=== PATIENT | female | born 1965 | race Caucasian/White ===

== ENCOUNTER 2018-12-02 17:56 | Emergency (ER) | payer MEDICAID, OTHER ==
[~2018-12-02] VITALS: Wt 59.5 kg
[2018-12-02] MEDS ORDERED: KETOROLAC 30 MG INJ IM STA (18:43)
[2018-12-02] MEDS ORDERED: IBUP-1542 PO (21:37)
[2018-12-02] MEDS ORDERED: POLY17PO6 PO (21:37)
[2018-12-02] MEDS ORDERED: TRAM50TA2 PO (21:37)
--- NOTE | 2018-12-02 21:40 | ERD ---
ER Documentation Chief Complaint Chief Complaint bilat flank pain [id number] with recent UTI finished abx but did not help HPI 53-year-old female since 2-month history of low back pain radiating to the bilateral lower abdomen. She was seen by her primary doctor had an x-ray. She was treated for UTI but has persistent pain. She denies fevers, vomiting, urinary complaints, upper abdominal pain. She states that she is constipated although having regular bowel movements. ROS All systems reviewed and are negative except as per history of present illness. Medications Home Meds Active Scripts Polyethylene Glycol* (Miralax*) 17 Gm Powd.pack, 17 GM PO DAILY, #14 Prov:VALDEZ KENNEY MD 12/02/18 Tramadol HCl (Tramadol HCl) 50 Mg Tablet, 50 MG PO Q4 PRN for PAIN, #15 TAB Prov:VALDEZ KENNEY MD 12/02/18 Ibuprofen* (Motrin*) 600 Mg Tab, 600 MG PO Q6, #30 TAB Prov:VALDEZ KENNEY MD 12/02/18 Allergies Allergies: Coded Allergies: No Known Allergy (Unverified , 12/02/18) PMhx/Soc Medical and Surgical Hx: pt denies Medical Hx, pt denies Surgical Hx FmHx Family History: No diabetes, No coronary disease, No other Physical Exam Vitals Vital Signs Date Temp Pulse Resp B/P (MAP) Pulse Ox O2 O2 Flow FiO2 Time Delivery Rate 12/02/18 98.5 80 18 136/86 98 Room Air 22:01 (103) 12/02/18 97.8 98 18 174/84 100 18:02 (114) Physical Exam Const: No acute distress Head: Atraumatic Eyes: Normal Conjunctiva ENT: Normal External Ears, Nose and Mouth. Neck: Full range of motion. No meningismus. Resp: Clear to auscultation bilaterally Cardio: Regular rate and rhythm, no murmurs Abd: Soft, non tender, non distended. Normal bowel sounds Skin: No petechiae or rashes Back: No midline or flank tenderness there is tenderness L4-L5 area. No CVA tenderness. Ext: No cyanosis, or edema Neur: Awake and alert Psych: Normal Mood and Affect Result Diagram: 12/02/18 0321 12/02/18 3898 Results 24 hrs Laboratory Tests Test 12/02/18 18:57 12/02/18 18:58 White Blood Count 4.8 10^3/ul Red Blood Count 4.04 10^6/ul Hemoglobin 13.3 g/dl Hematocrit 39.1 % Mean Corpuscular Volume 96.8 fl Mean Corpuscular Hemoglobin 32.9 pg Mean Corpuscular Hemoglobin Concent 34.0 g/dl Red Cell Distribution Width 11.9 % Platelet Count 204 10^3/UL Mean Platelet Volume 13.1 fl Immature Granulocytes % 0.200 % Neutrophils % 52.8 % Lymphocytes % 36.8 % Monocytes % 7.9 % Eosinophils % 1.3 % Basophils % 1.0 % Nucleated Red Blood Cells % 0.0 /100WBC Immature Granulocytes # 0.010 10^3/ul Neutrophils # 2.5 10^3/ul Lymphocytes # 1.8 10^3/ul Monocytes # 0.4 10^3/ul Eosinophils # 0.1 10^3/ul Basophils # 0.1 10^3/ul Nucleated Red Blood Cells # 0.0 10^3/ul Urine Color YELLOW Urine Clarity SLIGHTLY CLOUDY Urine pH 7.0 Urine Specific [place] 1.011 Urine Ketones NEGATIVE mg/dL Urine Nitrite NEGATIVE mg/dL Urine Bilirubin NEGATIVE mg/dL Urine Urobilinogen NEGATIVE mg/dL Urine Leukocyte Esterase 1+ Filiberto/ul Urine Microscopic RBC 1 /HPF Urine Microscopic WBC 7 /HPF Urine Hemoglobin NEGATIVE mg/dL Urine Glucose NEGATIVE mg/dL Urine Total Protein NEGATIVE mg/dl POC Beta HCG, Qualitative NEGATIVE Sodium Level 141 mmol/L Potassium Level 4.2 mmol/L Chloride Level 101 mmol/L Carbon Dioxide Level 30 mmol/L Anion Gap 10 Blood Urea Nitrogen 11 mg/dl Creatinine 0.54 mg/dl Est Glomerular Filtrat Rate mL/min > 60 mL/min Glucose Level 116 mg/dl Calcium Level 10.4 mg/dl Total Bilirubin 0.4 mg/dl Direct Bilirubin 0.00 mg/dl Indirect Bilirubin 0.4 mg/dl Aspartate Amino Transf (AST/SGOT) 44 IU/L Alanine Aminotransferase (ALT/SGPT) 21 IU/L Alkaline Phosphatase 104 IU/L Total Protein 9.1 g/dl Albumin 4.9 g/dl Globulin 4.20 g/dl Albumin/Globulin Ratio 1.16 Lipase 107 U/L Current Medications Medications Dose Sig/Tj Start Time Status Last (Trade) Ordered Route PRN Stop Time Admin Dose Reason Admin Ketorolac 30 mg ONCE STAT 12/02/18 DC 12/02/18 Tromethamine IM 18:43 12/02/18 19:19 (Toradol) 18:44 Procedures/MDM X-ray LS-Spine 3V Interpreted by me: Bones: No fracture, or lytic lesions Joints: No dislocation Foreign body: None. Impression-degenerative changes lumbar spine Was given Toradol 30 mg IM. Urine shows leukocyte esterase and few white blood cells. Urine was sent for culture. HCG negative. CBC and CMP and lipase showed no significant abnormalities. CT abdomen pelvis shows stool throughout the colon without additional acute findings. There are a few undescended calculi in the kidneys. Small 2 mm nodul e on the lingula. Patient presents with lower abdominal pain and low back pain. She is signs of d egenerative changes lumbar spine area suggestive of muscular skeletal low back pain. She also has findings of constipation. Will defer treatment for findings of UTI until after culture given absence of urinary findings and recent completion of antibiotics. Will treat with MiraLAX, ibuprofen, tramadol, primary care follow-up and return precautions. She has no signs of obstruction, surgical abdomen, appendicitis, pyelonephritis. The patient was stable with no new complaints during the ER course. Clinically, there is no current evidence to suggest meningitis, sepsis, acute abdomen, pneumonia, stroke, acute coronary syndrome, pulmonary embolism, aortic dissection or any other emergent condition appearing to require further evaluation or hospitalization. Patient counseled regarding my diagnostic impression and care plan. Prior to discharge all questions answered. Pt agrees with treatment plan and understands strict return precautions. Pt is instructed to follow up with primary care provider within 24- 48 hours. Precautionary instructions provided including instructions to return to the ER if not improving or for any worsening or changing symptoms or concerns. Departure Diagnosis: Primary Impression: Constipation Constipation type: unspecified constipation type Qualified Codes: K59.00 - Constipation, unspecified Additional Impression: Back pain Back pain location: back pain in unspecified location Chronicity: unspecified Back pain laterality: unspecified Qualified Codes: M54.9 - Dorsalgia, unspecified Condition: Stable Patient Instructions: Back Pain (Acute Or Chronic), Constipation (Adult) Additional Instructions: examines dice tiene estrenimiento y artritis. Cheque otro vez con pinto doctor primario en el proximo hensley or regresa para mas o nueva simptomas- froylan lee dolor con orinando.. VALDEZ KENNEY MD Dec 02, 2018 21:40
[2018-12-02 22:01] VITALS: BP 136/86; PULSE 80; RESP 18
== END 2018-12-02 22:01 | disposition home or self-care (01) ==
LOC: FTE 17:56
DX: K59.00 Constipation, unspecified (principal); R40.2142 Coma scale, eyes open, spontaneous, at arrival to emergency department; R40.2362 Coma scale, best motor response, obeys commands, at arrival to emergency department; R40.2252 Coma scale, best verbal response, oriented, at arrival to emergency department; M54.5 Low back pain
CPT/HCPCS: 36415; 72100; 74176; 80053; 81001; 81025; 83690; 85025; 87086; 96372; J1885; Z7502